=== PATIENT | male | born 1995 | race African-American/Black ===

== ENCOUNTER 2017-05-22 09:28 | Emergency (ER) | payer MEDICAID, SELFPAY ==
[2017-05-22] MEDS ORDERED: HYDROcodone/Acetaminophen 10/325 mg Tablet ONE (11:32)
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
== END 2017-05-22 11:57 | disposition home or self-care (01) ==
LOC: ERS 09:28
DX: M54.6 Pain in thoracic spine (principal); G89.29 Other chronic pain; J20.9 Acute bronchitis, unspecified
CPT/HCPCS: 71010